=== PATIENT | female | born 1955 | race Caucasian/White ===

== ENCOUNTER 2017-02-20 08:31 | Day surgery (SDC) | payer BC ==
[2017-02-16 13:12] VITALS: BMI 22.3
--- NOTE | 2017-02-20 07:48 | OP ---
Operative Note - Note: Operative Date: 02/20/17 Pre-Operative Diagnosis: r roberto Operation: scope r knee Findings: tear Surgeon: Chon Molina V Anesthesia: General Estimated Blood Loss (mls): 1 Operative Report Dictated: Yes
[2017-02-20] MEDS ORDERED: MIDAZOLAM HCL 2 MG/2 ML SINGLE DOSE VIAL ONE (09:51)
[2017-02-20] MEDS ORDERED: ceFAZolin SODIUM 1 GM VIAL ONE (09:56)
[2017-02-20] MEDS ORDERED: ONDANSETRON 4 MG/2 ML VIAL ONE (09:56)
[2017-02-20] MEDS ORDERED: LIDOCAINE HCL/PF 2% SDV 5ML VIAL ONE (09:56)
[2017-02-20] MEDS ORDERED: DEXAMETHASONE SOD PHOSPHATE 4 MG/1 ML VIAL ONE (09:56)
[2017-02-20] MEDS ORDERED: LIDOCAINE HCL 2% JELLY (5 ML/TUBE) ONE (10:02)
[2017-02-20] MEDS ORDERED: BUPIVACAINE HCL/EPINEPHRINE/PF 30 ML VIAL IJ ONE (10:07)
[2017-02-20] MEDS ORDERED: LIDOCAINE HCL 1%, 10 MG/ML (20ML VIAL) ONE (10:07)
[2017-02-20] MEDS ORDERED: morphine CARPU-JECT 10 MG/1 ML DISP.SYRIN ONE (10:07)
[2017-02-20] MEDS ORDERED: ePHEDrine SULFATE 50 MG/1 ML AMPULE ONE (10:47)
[2017-02-20] MEDS ORDERED: ONDANSETRON 4 MG/2 ML VIAL IVPUSH PRN (11:04)
[2017-02-20] MEDS ORDERED: oxyCODONE HCL 5 MG TABLET PO PRN (11:04)
[2017-02-20] MEDS ORDERED: LACTATED RINGERS SOLUTION 1,000 ML IV SCH (11:15)
[2017-02-20] MEDS ORDERED: BUPIVACAINE 0.25% /EPI 1:200,000 10 ML VIAL INF ONE (11:20)
--- NOTE | 2017-02-20 11:40 | OP ---
DATE OF OPERATION: 02/10/2017 SURGEON: Chon Maqruez MD ANESTHESIA: [facility]. ANTIBIOTIC: Kefzol. COMPLICATIONS: None. DRAINS: None. BLOOD LOSS: Minimal. TOURNIQUET TIME: None. FINDINGS: See text. PREOPERATIVE DIAGNOSIS: Right knee internal derangement. POSTOPERATIVE DIAGNOSIS: Right knee large medial meniscus tear, small lateral meniscus tear, multiple loose bedside, and osteochondral fracturing of medial femoral condyle. PROCEDURE PERFORMED: Medial meniscectomy posterior body and medial body, lateral meniscectomy central 40%, loose body removal, and microfracture of medial femoral condyle. HISTORY: A 61-year-old woman with an injury unresponsive to conservative measures. She continues to have pain and is very active. Here for arthroscopic evaluation and treatment. DESCRIPTION OF PROCEDURE: The patient was brought to the operating room, placed on the table in the supine position. Some flexors put in for the back. A sterile prepped and draped was performed of the right lower extremity. EUA was unremarkable. After Betadine sterile prep and drape, we did not use a tourniquet but we used an inflow pump set at 55 cm of water, and we had excellent visualization throughout. An anterolateral portal was made with a blunt trocar, and after sounding with the needle, and inferomedial portal was then made in a similar fashion. The above findings were noted. LOOSE BODY REMOVAL: Multiple loose bodies 5-9 mm in diameter were discovered. These were grasped, removed. They were osseocartilaginous. MICROFRACTURE: The belly of the medial femoral condyle had an area about the size of a nickel that had grade 3 changes with central areas of grade 4. Chondroplasty was performed around the edges, and the central bare bone area was treated with microfracture. We performed the subchondral plate with a small pick to promptly get fibrocartilaginous ingrowth. We had good back bleeds from the holes. MEDIAL MENISCECTOMY: With the leg off the side of the bed, we had excellent access to the posterior aspect of the knee. The large medial meniscus tear was noted. We had to resect the meniscus from the posterior horn, we were able to normalize to a normal anterior body. LATERAL MENISCECTOMY: With the leg in figure 4 position, we had good access to the lateral compartment. The articular surface cartilage here was pristine; however, posteriorly there was a tear up to about 40% radius. We resected this, normalized using hand instruments. We were able to maintain the popliteal hiatus intact. OTHER FINDINGS: The anterior compartment had grade 3 changes, but the patella tracked normally. The ACL was intact. The medial plica was not felt to be pathologic. CONCLUSION: We removed all loose chips and bits. We injected a lidocaine/morphine mixture. All portals were closed with strips. A dressing was applied, and she returned to recovery with vitals stable having tolerated procedure well. She will be discharged to home from the outpatient area. Condition stable. Diet regular. She has knee sheet exercises. We are giving her Percocet for pain, but she will also use Ativan as soon as possible. CHON MARQUEZ M.D. [id number]
[2017-02-20 13:05] VITALS: TEMP 98
[2017-02-20 13:12] VITALS: BP 140/75; PULSE 67
--- NOTE | 2017-02-23 15:23 | SURG ---
Surgery Powderman Note Powderman: Ina Valladares PA-C Date of Service: 02/20/17 Diagnosis: Pre-op: Right knee internal derangement Post-op: Right knee large medial meniscus tear, small lateral meniscus tear Procedure: Right knee arthroscopy, meniscectomy, loose body removal I was present for the entirety of the operative procedure. For further detail, please refer to operative report. Visit type - Case Type Case Type: Scheduled Admission
--- NOTE | 2017-02-26 15:09 | PATH ---
Surgical Pathology Report Patient Name: BARRERA TUBBS [facility]. Rec. #: [id number] /Age/Gender: 1955 (Age: 61) / F Account: [id number] Location: [facility] Taken: 02/20/2017 Received: 02/20/2017 Reported: 02/26/2017 Physicians: Chon Molina M.D. Specimen(s) Received RIGHT KNEE SHAVINGS Clinical History Right knee meniscal tear Final Diagnosis KNEE, RIGHT, ARTHROSCOPIC SHAVINGS: CARTILAGE AND FIBROSYNOVIAL TISSUE. Electronically Signed Pam Mckinney M.D. Gross Description Patient in formalin, labeled "right knee shavings" and 2.0 x 2.0 x 0.5 cm in multiple fragments of craig-white soft tissue. Teaching Dietitian sections submitted in one cassette. AF/02/23/2017 final/02/23/2017
== END 2017-02-20 12:45 | disposition home or self-care (01) ==
LOC: FASU 08:31
PROVIDERS: ATTEND Orthopaedic Surgery
PROC: 0SBC4ZZ Excision of Right Knee Joint, Percutaneous Endoscopic Approach (ICD-10-PCS; 2017-02-20)
PROC: 0SCC4ZZ Extirpation of Matter from Right Knee Joint, Percutaneous Endoscopic Approach (ICD-10-PCS; 2017-02-20)
PROC: 0SQC4ZZ Repair Right Knee Joint, Percutaneous Endoscopic Approach (ICD-10-PCS; 2017-02-20)
PROC: 0SBC4ZZ Excision of Right Knee Joint, Percutaneous Endoscopic Approach (ICD-10-PCS; principal; 2017-02-20 10:13)
DX: S83.231A Complex tear of medial meniscus, current injury, right knee, initial encounter (principal); S83.281A Other tear of lateral meniscus, current injury, right knee, initial encounter; S72.431A Displaced fracture of medial condyle of right femur, initial encounter for closed fracture; X58.XXXA Exposure to other specified factors, initial encounter; Y93.9 Activity, unspecified; Y92.9 Unspecified place or not applicable
CPT/HCPCS: 88304-TC; 94760